=== PATIENT | female | born 1975 | race Caucasian/White ===

== ENCOUNTER 2016-10-04 14:05 | Emergency (ER) | payer MEDICAID ==
[~2016-10-04] VITALS: Wt 65.0 kg
[2016-10-04] MEDS ORDERED: ACET325T33 PO (14:17)
--- NOTE | 2016-10-04 14:30 | ERD ---
ER Documentation Chief Complaint Date/Time DATE: 10/04/16 TIME: 14:28 Chief Complaint COUGH AND CONGESTION FOR THEPAST 2 WKS. CLEARED BY OB HPI This is a 41-year-old female presenting to the emergency department stating she is 8 weeks complaining of congestion, nasal congestion and cough for the past 2 weeks. Patient has already been cleared by OB. She denies any abdominal pain, urinary symptoms, fevers. She has not taken any medications for this ROS All systems reviewed and are negative except as per history of present illness. Medications Home Meds Active Scripts Acetaminophen* (Tylenol*) 325 Mg Tablet, 2 TAB PO Q6 Y for PAIN AND OR ELEVATED TEMP, #20 TAB Prov:SANTY TAYLOR PA-C 10/04/16 Physical Exam Vitals Vital Signs Date Time Temp Pulse Resp B/P Pulse Ox O2 Delivery O2 Flow Rate FiO2 10/04/16 14:13 98.8 71 20 92/57 98 Physical Exam GENERAL: well-developed/well-nourished, in no apparent distress, non-toxic appearing HEAD: NC/AT, no swelling noted in frontal or maxillary areas EARS: bilateral tympanic membrane is intact without erythema or effusion NARES: nares congested THROAT: oropharynx non-erythematous without exudates, no tonsil enlargement, post nasal drip EYES: Conjunctiva normal NECK: Supple, no lymphadenopathy PULM: CTA bilaterally, no rales, rhonchi, or wheezing heard CV: Normal S1S2, RRR, good capillary refill GI: Soft, distended due to , normal bowel sounds, non-tender BACK: No midline tenderness, no masses EXT No clubbing, cyanosis, or edema NEURO: Alert and Orientated SKIN: Intact, normal turgor PSYCH: Normal mood and mentation Procedures/MDM This is a 41-year-old female who is 8 weeks but has already been cleared by OB presenting to the emergency room complaining of nasal congestion, cough and sore throat for the past 2 weeks. On examination patient appeared well, she is afebrile. Her lungs are clear to auscultation. She has nontender abdomen. This likely due to viral upper respiratory infection. I will low suspicion for pneumonia, strep pharyngitis, otitis media. Patient was given prescription for Tylenol and to follow-up with her [employer] primary care physician h[place]. Discussed her to the ER for any worsening signs or symptoms. She understands and agrees with this plan Departure Diagnosis: Primary Impression: Viral URI Condition: Stable Patient Instructions: Uri, Viral, No Abx (Adult) Additional Instructions: Visite a li krystyna joe para un EXAMEN.Regrese a estas instalaciones si no se mejora maximus esperbamos o maximus le dijimos. [place] toda la medicina n[place] y maximus se le indic. Regrese a estas instalaciones si no se mejora maximus esperbamos o maximus le dijimos. SANTY TAYLOR PA-C Oct 04, 2016 14:30
== END 2016-10-04 14:16 | disposition home or self-care (01) ==
LOC: E/R 14:05
DX: O99.511 Diseases of the respiratory system complicating pregnancy, first trimester (principal); J06.9 Acute upper respiratory infection, unspecified; Z3A.08 8 weeks gestation of pregnancy
CPT/HCPCS: 99282